=== PATIENT | female | born 1975 | race Caucasian/White ===

== ENCOUNTER 2024-05-20 10:57 | Outpatient (RCR) | payer MEDICAID, SELFPAY ==
--- NOTE | 2024-05-20 11:11 | PTNOTE_ITS ---
PT OP Initial Eval Patient Information Outpatient Physical Therapy Treatment Date: 05/20/24 Visit Reasons: left hip pain Medical Diagnosis: M25.552 Start of Care: 05/20/24 Date of Onset: 8 yrs ago Smoking Status Smoking Status: Never smoker Initial Assessment Subjective: Pt is 48 yr old female who c/o L hip pain for many years and is constant. Pt has Hx of riding horses and working physical jobs and lifts 50 lbs regularly at [employer]. Increased pain with prolonged walking and most movements. 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 Pt goal: less L hip pain, get an MRI Objective: L hip ArOM: flexion: 105 deg Abduction: 35 deg with pain IR 15 deg with pain SLR: 45 deg with weakness and pain Hip scour: positive for inguinal pain Gait: mildly antalgic Assessment: Pt presentation consistent with degenerative changes of L hip. Pt not likely going to benefit from skilled therapy to meet goals and has poor rehab potential due to chronicity and severity of ssx and she will likely have more pain with therapy visits. PT recommends further diagnostic imaging of L hip joint. Short Term and Penitentiary Goals Eval and D/C Treatment Plan Eval and D/C Certification Dates: 05/20/24 to 06/18/25 Procedure Charges OP PT Eval Mod Complex 30 minutes: Yes
== END 2024-06-05 23:59 | disposition home or self-care (01) ==
LOC: CPTX 10:57
PROVIDERS: PCP Physician Assistant; Referring Provider Physician Assistant; Visit Provider Physician Assistant
DX: M25.552 Pain in left hip (principal)
CPT/HCPCS: 97162

== ENCOUNTER → 2025-06-20 | Outpatient (CLI) | payer MEDICAID, SELFPAY ==
--- NOTE | 2025-06-20 13:30 | XR_ITS ---
Examination: Screening digital mammography, bilateral Computer aided detection 3-D breast Tomosynthesis, bilateral Date and time of exam: June 20, 2025, 1408 hours INDICATIONS: Left breast swelling and lumps in the armpit this month, family history, mother breast cancer Indication: Screening Technique: Nonmagnified MLO, CC views of the breasts to been obtained, reconstructed from 3-D Tomosynthesis images. R2 computer aided detection program utilized for evaluation of suspicious masses and/or abnormal calcifications. 3-D Tomosynthesis images obtained. Findings: The breasts are heterogeneously dense, which may obscure small masses 25 mm focal asymmetry upper outer left breast anterior depth Impression: BI-RADS Category 0: Incomplete: Need additional imaging evaluation Recommend follow-up spot tomographic views of 25 mm focal asymmetry upper outer left breast as well as bilateral breast sonography to complete the work-up
== END | disposition home or self-care (01) ==
LOC: CDIM 13:54
PROVIDERS: Referring Provider Physician Assistant; Visit Provider Physician Assistant
DX: Z12.31 Encounter for screening mammogram for malignant neoplasm of breast (principal); R92.8 Other abnormal and inconclusive findings on diagnostic imaging of breast; N64.89 Other specified disorders of breast
CPT/HCPCS: 77063; 77067